=== PATIENT | male | born 1950 | race African-American/Black ===

== ENCOUNTER 2020-06-27 16:34 | Observation (INO) | payer OTHER ==
[2020-06-27 17:05] VITALS: BMI 31.2
[2020-06-27] MEDS ORDERED: ONDANSETRON 4 MG/2 ML VIAL IVPUSH ONE (17:42)
[2020-06-27] MEDS ORDERED: ONDANSETRON 4 MG/2 ML VIAL ONE (18:08)
[2020-06-27 18:28] LABS: BASO % 0.7 % (0-2.0); EOS % 1.5 % (0-4.5); HEMATOCRIT 37.1 % (35.4-49); HEMOGLOBIN 12.4 GM/dL (11.7-16.9); LYMPH % 13.2 % (8-40); MCH 29.5 pg (25.7-33.7); MCHC 33.4 g/dl (32.0-35.9); MEAN CELL VOLUME 88.4 fl (80-96); MEAN PLT VOLUME 8.6 fl (7.5-11.1); MONO % 11.1 % (3.8-10.2); NEUT % 73.5 % (42.8-82.8); PLATELET COUNT 231 K/MM3 (134-434); RBC 4.19 M/mm3 (4.00-5.60); RDW 16.1 % (11.9-15.9)
[2020-06-27 18:55] LABS: ALBUMIN 3.5 g/dl (3.4-5.0); BLOOD UREA NITROGEN 42.6 mg/dL (7-18); CALCIUM 8.5 mg/dL (8.5-10.1)
[2020-06-27 19:00] LABS: BILIRUBIN,TOTAL 0.4 mg/dL (0.2-1); TOT PROT 7.1 g/dl (6.4-8.2)
[2020-06-27 19:50] LABS: CREATININE 8.4 mg/dL (0.55-1.3)
[2020-06-27] MEDS ORDERED: ACETAMINOPHEN 325 MG TABLET (FP) PO ONE (22:34)
[2020-06-27] MEDS ORDERED: ACETAMINOPHEN 325 MG TABLET (FP) ONE (23:13)
[2020-06-28] MEDS: LEVOTHYROXINE NA 75 MCG TABLET (FP) PO SCH (08:15)
[2020-06-28] MEDS ORDERED: APIXABAN 2.5 MG TABLET ONE ×2 (08:23→23:36)
[2020-06-28] MEDS ORDERED: CARVEDILOL 12.5 MG TABLET (FP) ONE ×2 (08:23→23:36)
[2020-06-28] MEDS ORDERED: LEVOTHYROXINE NA 25 MCG TABLET (FP) ONE (08:24)
[2020-06-28] MEDS ORDERED: dilTIAZem HCL 60 MG TABLET ONE (08:24)
[2020-06-28] MEDS ORDERED: CLOPIDOGREL BISULFATE 75 MG TABLET (FP) ONE (08:34)
[2020-06-28] MEDS: CARVEDILOL 25 MG TABLET (FP) PO SCH ×2 (09:15→23:39)
[2020-06-28] MEDS: APIXABAN 2.5 MG TABLET PO SCH ×2 (09:15→23:39)
[2020-06-28] MEDS: CLOPIDOGREL BISULFATE 75 MG TABLET (FP) PO SCH (09:15)
[2020-06-28 10:25] LABS: HEMATOCRIT 36.2 % (35.4-49); HEMOGLOBIN 12.2 GM/dL (11.7-16.9); MCH 29.8 pg (25.7-33.7); MCHC 33.8 g/dl (32.0-35.9); MEAN PLT VOLUME 8.1 fl (7.5-11.1); PLATELET COUNT 224 K/MM3 (134-434); RBC 4.11 M/mm3 (4.00-5.60); RDW 16.2 % (11.9-15.9); WHITE BLOOD COUNT 6.1 K/mm3 (4.0-10.0)
[2020-06-28 10:48] LABS: ALBUMIN 3.4 g/dl (3.4-5.0); CALCIUM 8.9 mg/dL (8.5-10.1)
[2020-06-28 10:49] LABS: BLOOD UREA NITROGEN 47.5 mg/dL (7-18); MAGNESIUM 2.3 mg/dL (1.8-2.4)
[2020-06-28 10:52] LABS: PHOSPHOROUS 4.8 mg/dL (2.5-4.9)
[2020-06-28 10:53] LABS: BILIRUBIN,TOTAL 0.4 mg/dL (0.2-1); TOT PROT 6.8 g/dl (6.4-8.2)
[2020-06-28] MEDS: INSULIN SLIDING SCALE (NOVOLOG) 1 VIAL SQ SCH ×2 (11:33→16:36)
[2020-06-28] MEDS ORDERED: ACETAMINOPHEN 325 MG TABLET (FP) ONE (13:30)
[2020-06-28] MEDS: ACETAMINOPHEN 325 MG TABLET (FP) PO PRN (13:45)
[2020-06-28] MEDS ORDERED: SODIUM CHLORIDE 250 ML IV PRN (14:30)
[2020-06-28] MEDS ORDERED: ATORVASTATIN CA 10 MG TABLET (FP) ONE (23:36)
[2020-06-28] MEDS: ATORVASTATIN CA 10 MG TABLET (FP) PO SCH (23:39)
[2020-06-29] MEDS: LEVOTHYROXINE NA 75 MCG TABLET (FP) PO SCH (06:32)
[2020-06-29] MEDS: INSULIN SLIDING SCALE (NOVOLOG) 1 VIAL SQ SCH ×3 (06:32→17:35)
[2020-06-29 06:56] LABS: BASO % 0.5 % (0-2.0); EOS % 2.5 % (0-4.5); HEMATOCRIT 34.3 % (35.4-49); HEMOGLOBIN 11.4 GM/dL (11.7-16.9); LYMPH % 18.2 % (8-40); MCH 29.5 pg (25.7-33.7); MCHC 33.3 g/dl (32.0-35.9); MEAN CELL VOLUME 88.6 fl (80-96); MEAN PLT VOLUME 8.3 fl (7.5-11.1); MONO % 9.7 % (3.8-10.2); NEUT % 69.1 % (42.8-82.8); PLATELET COUNT 214 K/MM3 (134-434); RBC 3.87 M/mm3 (4.00-5.60); RDW 15.9 % (11.9-15.9); WHITE BLOOD COUNT 5.7 K/mm3 (4.0-10.0)
[2020-06-29 07:26] LABS: ALBUMIN 3.4 g/dl (3.4-5.0); BLOOD UREA NITROGEN 61.9 mg/dL (7-18); CALCIUM 8.9 mg/dL (8.5-10.1); MAGNESIUM 2.6 mg/dL (1.8-2.4)
[2020-06-29 07:27] LABS: BILIRUBIN,TOTAL 0.4 mg/dL (0.2-1); TOT PROT 6.6 g/dl (6.4-8.2)
[2020-06-29] MEDS: APIXABAN 2.5 MG TABLET PO SCH ×2 (10:55→22:07)
[2020-06-29] MEDS: CARVEDILOL 25 MG TABLET (FP) PO SCH ×2 (10:55→22:07)
[2020-06-29] MEDS: CLOPIDOGREL BISULFATE 75 MG TABLET (FP) PO SCH (10:55)
[2020-06-29] MEDS: ACETAMINOPHEN 325 MG TABLET (FP) PO PRN (19:01)
[2020-06-29] MEDS: ATORVASTATIN CA 10 MG TABLET (FP) PO SCH (22:07)
[2020-06-29 22:51] LABS: BASO % 0.6 % (0-2.0); EOS % 2.7 % (0-4.5); HEMATOCRIT 34.8 % (35.4-49); HEMOGLOBIN 11.8 GM/dL (11.7-16.9); LYMPH % 18.1 % (8-40); MCH 29.7 pg (25.7-33.7); MCHC 33.8 g/dl (32.0-35.9); MEAN CELL VOLUME 87.9 fl (80-96); MEAN PLT VOLUME 8.6 fl (7.5-11.1); NEUT % 68.6 % (42.8-82.8); PLATELET COUNT 222 K/MM3 (134-434); RBC 3.96 M/mm3 (4.00-5.60); RDW 15.8 % (11.9-15.9)
[2020-06-29 22:57] LABS: INR 1.23 (0.83-1.09)
[2020-06-29 23:00] LABS: ACTIVATED PTT 32.5 SECONDS (25.2-36.5)
[2020-06-29 23:16] LABS: CALCIUM 8.5 mg/dL (8.5-10.1)
[2020-06-29 23:17] LABS: ALBUMIN 3.3 g/dl (3.4-5.0); MAGNESIUM 1.9 mg/dL (1.8-2.4)
[2020-06-29 23:20] LABS: CREATININE 7.1 mg/dL (0.55-1.3); PHOSPHOROUS 2.5 mg/dL (2.5-4.9)
[2020-06-29 23:21] LABS: BILIRUBIN,TOTAL 0.3 mg/dL (0.2-1); TOT PROT 6.8 g/dl (6.4-8.2)
[2020-06-29 23:45] LABS: BLOOD UREA NITROGEN 31.1 mg/dL (7-18)
[2020-06-30] MEDS: LEVOTHYROXINE NA 75 MCG TABLET (FP) PO SCH (06:26)
[2020-06-30] MEDS: INSULIN SLIDING SCALE (NOVOLOG) 1 VIAL SQ SCH ×2 (06:28→11:05)
[2020-06-30] MEDS: CLOPIDOGREL BISULFATE 75 MG TABLET (FP) PO SCH (09:11)
[2020-06-30] MEDS: APIXABAN 2.5 MG TABLET PO SCH (09:11)
[2020-06-30] MEDS: CARVEDILOL 25 MG TABLET (FP) PO SCH (09:11)
[2020-06-30 14:17] VITALS: BP 122/72; PULSE 82; TEMP 98.1
== END 2020-06-30 18:14 ==
LOC: JER 16:34 → JERBED 23:11 → J4S 06-29 01:42
PROVIDERS: ADMIT Internal Medicine; ATTEND Internal Medicine
PROC: 3E033GC Introduction of Other Therapeutic Substance into Peripheral Vein, Percutaneous Approach (ICD-10-PCS; principal; 2020-06-27)
DX: I13.11 Hypertensive heart and chronic kidney disease without heart failure, with stage 5 chronic kidney disease, or end stage renal disease (principal); I25.118 Atherosclerotic heart disease of native coronary artery with other forms of angina pectoris; R55 Syncope and collapse; E78.5 Hyperlipidemia, unspecified; Z99.2 Dependence on renal dialysis; E11.22 Type 2 diabetes mellitus with diabetic chronic kidney disease; Z87.891 Personal history of nicotine dependence; K21.9 Gastro-esophageal reflux disease without esophagitis; Z99.89 Dependence on other enabling machines and devices; K59.00 Constipation, unspecified
CPT/HCPCS: 36415; 70450-TC; 80053; 82550; 82962; 83036; 83735; 84100; 84443; 84484; 85025; 85027; 85610; 85730; 86803; 87340; 93005; 93010; 93306-TC; 93880-TC; 96374; 99285-25; C9803; G0378; U0003